=== PATIENT | female | born 1955 | race Caucasian/White ===

== ENCOUNTER → 2022-09-28 09:18 | Outpatient (BNVA) | payer OTHER, SELFPAY | PROVIDERS: Family Provider Family Medicine; Referring Provider Dermatology; Visit Provider Podiatrist Foot & Ankle Surgery | DX: M92.72 Juvenile osteochondrosis of metatarsus, left foot; M19.072 Primary osteoarthritis, left ankle and foot | CPT/HCPCS: 73630; 99204 ==

== ENCOUNTER 2022-11-12 08:27 | Outpatient (CLI) | payer OTHER, SELFPAY ==
--- NOTE | 2022-11-12 08:45 | MRR_ITS ---
PROCEDURE INFORMATION: Exam: MR Left Lower Extremity Other Than Joint Without Contrast; Foot Exam date and time: 11/12/2022 9:01 AM Age: 67 years old Clinical indication: Patient HX: Left foot pain since April 2022/no injury/pain is from the toes to the heel; Additional info: Suspected stress fracture left foot, forefoot protocol. Evaluate metatarsophalangeal joints, TECHNIQUE: Imaging protocol: Magnetic resonance imaging of the left lower extremity without contrast. Exam focused on the foot. COMPARISON: CR XR foot LT min 3V* [id number] 09/28/2022 9:23 AM FINDINGS: The examination is somewhat limited by motion degradation and the large field of view. There is generalized soft tissue swelling. No convincing organized collection or soft tissue mass is identified. There is evidence of mild chronic plantar fasciitis and insertional Achilles enthesopathy. No acute tendon or ligament injury is identified. There is extensive bone marrow edema, most notably in the talus, tarsal bones and metatarsals. There is relative sparing of the hallux and 2nd metatarsal heads and shafts. No convincing fracture line is appreciated. There is no dislocation. Mild degenerative changes are noted. There are no erosive or destructive changes. No lytic or blastic lesion is seen. There is a small amount of intra-articular fluid and synovitis diffusely. MR/MR foot LT wo con* [id number] IMPRESSION: 1. Limited examination. 2. No convincing MR evidence of acute fracture or dislocation. 3. Extensive nonspecific bone marrow edema, soft tissue swelling, intra-articular fluid and synovitis, as described above. Differential diagnosis includes but is not limited to altered biomechanics, mechanical stress, disuse, and osteopenia. Infection is considered unlikely given the clinical history. Clinical correlation and follow-up is urged. 4. Additional findings, as above.
== END 2022-11-12 08:28 | disposition home or self-care (01) ==
PROVIDERS: PCP Family Medicine; Visit Provider Podiatrist Foot & Ankle Surgery
DX: M84.375A Stress fracture, left foot, initial encounter for fracture (principal); R60.0 Localized edema; M79.89 Other specified soft tissue disorders; M65.872 Other synovitis and tenosynovitis, left ankle and foot
CPT/HCPCS: 73718

== ENCOUNTER → 2022-11-18 10:55 | Outpatient (BNVA) | payer OTHER, SELFPAY | PROVIDERS: PCP Family Medicine; Visit Provider Podiatrist Foot & Ankle Surgery | DX: M79.672 Pain in left foot (principal); M05.20 Rheumatoid vasculitis with rheumatoid arthritis of unspecified site | CPT/HCPCS: 36415; 85651; 86140; 86160; 86162; 86200; 86235; 86255; 86376; 86431 ==

== ENCOUNTER 2022-11-24 17:12 | Inpatient (IN) | payer MEDICARE, SELFPAY ==
[2022-11-24] VITALS (10 sets, daily range): BP systolic 103–128; BP diastolic 57–69; PULSE 92–103; RESP 16–19; TEMP 37.1; O2SAT 97–100; BMI 23.1
--- NOTE | 2022-11-24 18:01 | ECG_ITS ---
[facility] Test Date: 2022-11-24 Pat Name: Ab Bacon Department: Room: Gender: Female Warranty Coordinator: : 1955 Requested By: Yaron Caba Order Number: [id number] Jakub MD: Paddy Moore M.D. Measurements Intervals [place] Rate: 105 P: 2 ME: 113 QRS: 35 QRSD: 80 T: 61 QT: 324 QTc: 428 Interpretive Statements SINUS TACHYCARDIA WITH SHORT ME INTERVAL ABNORMAL RHYTHM ECG No previous ECG available for comparison Electronically Signed On 11-24-2022 20:53:49 CDT by Paddy Moore M.D. [email or web address] medical [email or web address], [id number]
--- NOTE | 2022-11-24 18:16 | W.ED.SYNCOPE ---
HPI - Syncope General: Chief Complaint: Syncope Stated Complaint: Syncope / Black Stools Time Seen by Provider: 11/24/22 18:01 Source: patient Mode of arrival: ambulatory Limitations: no limitations History of Present Illness: 67-year-old female states that this morning she felt very lightheaded and had a syncopal event. She states that she had large amount of black tarry stool at that time as well states she still having some black tarry stools but not as much she does feel lightheaded with standing but is feeling improved she denies any pain anywhere denies any chest pain denies headache no history of peptic ulcer bleeds in the past she is not on any blood thinners. Associated symptoms: Deny abdominal pain, chest pain, fever(s), headache(s) or nausea Review of Systems Const: Denies: fever(s), chills, body aches or change in appetite ENMT: Denies: throat pain or dental pain Card: Reports: syncope; Denies: chest pain Resp: Denies: dyspnea GI: Reports: melena; Denies: abdominal pain, nausea, vomiting or diarrhea : Denies: dysuria Musc: Denies: neck pain or back pain Skin/Breast: Denies: rash Neuro: Denies: headache(s) Physical Exam Const: COMMON NORMALS: patient oriented x3 HENMT: COMMON NORMALS: normocephalic and atraumatic HEAD & SCALP: normocephalic and atraumatic Eye: COMMON NORMALS: Equal, round and reactive pupils present and EOMs intact bilaterally PUPIL: Yes Equal, round and reactive pupils present Neck/C-Spine: COMMON NORMALS: full ROM and supple Chest: COMMONS NORMALS: normal inspection of the chest and normal palpation of entire chest wall Resp: COMMON NORMALS: normal respiratory effort, No retractions, No use of accessory muscles and clear to auscultation bilaterally AUSCULTATION: clear to auscultation bilaterally Cardio: COMMON NORMALS: regular rate, regular rhythm and No murmurs present (Cardio) RATE: regular rate RHYTHM: regular rhythm GI: COMMON NORMALS: Normal to inspection, nondistended, normoactive bowel sounds present, Soft to palpation, non-tender and no masses PALPATION: Yes Soft to palpation OTHER: black stool on exam hemocult positive Extremity: COMMON NORMALS: normal to inspection and full ROM Neuro: COMMON NORMALS: patient oriented x3, moves all extremities and no focal motor deficits Psych: COMMON NORMALS: mental status grossly normal, Normal thought process present and cooperative THOUGHT PROCESS: Normal thought process present Skin: COMMON NORMALS: no rashes or lesions noted and no wounds GENERAL SKIN EXAM: no rashes or lesions noted Course Vital Signs: Vital signs: Vital Signs Temperature 98.7 F 11/24/22 17:16 Pulse Rate 103 H 11/24/22 18:25 Respiratory Rate 18 11/24/22 17:16 Blood Pressure 107/68 11/24/22 18:25 Pulse Oximetry 98 11/24/22 18:25 Oxygen Delivery Me thod Room Air 11/24/22 18:25 MDM - Syncope Medical Decision Making Patient presents here with a likely upper GI bleed likely causing her syncope she is not anemic here her blood pressures here but normal did start her on Protonix spoke to the hospitalist along with surgeon and will admit at this time. Lab Data 11/24/22 18:24 11/24/22 18:24 Laboratory Results WBC 16.69 10^3/uL (3.29-11.43) H 11/24/22 18:24 RBC 2.87 10^6/uL (3.85-5.65) L 11/24/22 18:24 Hgb 10.00 g/dL (11.27-16.99) L 11/24/22 18:24 Hct 29.2 % (36-47) L 11/24/22 18:24 MCV 101.7 fl (85-98) H 11/24/22 18:24 MCH 34.8 pg (27-33) H 11/24/22 18:24 MCHC 34.2 g/dL (30-55) 11/24/22 18:24 RDW 13.1 % (12.1-15.1) 11/24/22 18:24 Plt Count 272 10^3/cmm (157-399) 11/24/22 18:24 MPV 9.4 fL (7.4-10.4) 11/24/22 18:24 Neut % (Auto) 77.8 % 11/24/22 18:24 Lymph % (Auto) 12.7 % 11/24/22 18:24 Bartholomew % (Auto) 7.7 % 11/24/22 18:24 Eos % (Auto) 0.3 % 11/24/22 18:24 Baso % (Auto) 0.2 % 11/24/22 18:24 Neut # (Auto) 12.97 10^3/uL (1.8-7.7) H 11/24/22 18:24 Lymph # (Auto) 2.1 10^3/uL (0.8-4.8) 11/24/22 18:24 Bartholomew # (Auto) 1.3 10^3/uL (0.2-0.9) H 11/24/22 18:24 Eos # (Auto) 0.1 10^3/uL (0.0-0.8) 11/24/22 18: Baso # (Auto) 0.0 10^3/uL (0.0-0.1) 11/24/22 18: Nucleated RBC % (auto) 0 % 11/24/22 18: Nucleated RBCs # 0.0 /100WBC 11/24/22 18: PT 13.00 SECONDS (12.1-14.9) 11/24/22 18:24 INR 0.96 (0.8-1.2) 11/24/22 18:24 Sodium 138 mmol/L (136-145) 11/24/22 18:24 Potassium 3.9 mmol/L (3.5-5.1) 11/24/22 18:24 Chloride 104 mmol/L (98-107) 11/24/22 18:24 Carbon Dioxide 26 mmol/L (22-29) 11/24/22 18:24 Anion Gap 11.9 (5-19) 11/24/22 18:24 BUN 45 mg/dL (8-23) H 11/24/22 18:24 Creatinine 0.8 mg/dL (0.5-0.9) 11/24/22 18:24 GFR Calculation 72.0 mL/min (90-130) L 11/24/22 18:24 Glucose 108 mg/dL (65-115) 11/24/22 18:24 Calculated Osmolality 298 mOsm/kg (285-295) H 11/24/22 18:24 Calcium 8.6 mg/dL (8.5-10.5) 11/24/22 18:24 Total Bilirubin 0.2 mg/dL (0.15-1.2) 11/24/22 18:24 AST 11 U/L (0-32) 11/24/22 18:24 ALT 18 U/L (0-33) 11/24/22 18:24 Alkaline Phosphatase 63 U/L (35-105) 11/24/22 18:24 Total Protein 6.0 g/dL (6.6-8.7) L 11/24/22 18:24 Albumin 3.7 g/dL (3.5-5.2) 11/24/22 18:24 Globulin 2.3 g/dL (1.3-4.6) 11/24/22 18:24 Blood Type A Positive 11/24/22 18:24 Rho(D) Type Positive 11/24/22 18:24 Antibody Screen Negative 11/24/22 18:24 No radiology studies performed this visit Critical Care Time Critical Care Time: Critical Care Time: Yes Total Critical Care Time: 40 Attestation: The high probability of a clinically significant, sudden or life threatening deterioration of the patient's gi system(s) required my full and direct attention, intervention and personal management. The critical care time is as shown. This time is in addition to time spent performing any reported procedures but includes the following: [x] Data and vital sign review and interpretation [x] Patient assessment, examination and intervention [x] Documentation [x] Medication orders and management Discharge Plan Discharge Patient Disposition: Admitted As Inpatient Clinical Impression: Acute upper GI bleed, Syncope Condition: Stable Prescriptions: No Action methylprednisolone [Medrol (Nuno)] 4 mg tablets,dose pack See Rx Instructions PO PER PKG DIR Qty: 21 0RF Rx Instructions: PO PER PKG DIR Referrals: bAel Sal DO [Primary Care Provider] - Coding Level of Care Code ED Brand Sales Manager for g Guzman
[2022-11-24 18:38] LABS: Basophils % 0.2 %; Eosinophils # 0.1 10^3/uL (0.0-0.8); Eosinophils % 0.3 %; Hematocrit 29.2 % (36-47); Lymphocytes # 2.1 10^3/uL (0.8-4.8); Lymphocytes % 12.7 %; Mean Corpuscular HGB Conc 34.2 g/dL (30-55); Mean Corpuscular Hemoglobin 34.8 pg (27-33); Mean Corpuscular Volume 101.7 fl (85-98); Mean Platelet Volume 9.4 fL (7.4-10.4); Monocytes # 1.3 10^3/uL (0.2-0.9); Monocytes % 7.7 %; Neutrophils # 12.97 10^3/uL (1.8-7.7); Neutrophils % 77.8 %; Nucleated Red Blood Cells % 0 %; Platelet Count 272 10^3/cmm (157-399); Red Blood Count 2.87 10^6/uL (3.85-5.65); Red Cell Distribution Width 13.1 % (12.1-15.1); White Blood Count 16.69 10^3/uL (3.29-11.43)
[2022-11-24] MEDS: pantoprazole 40 mg SDV 80 MG IVP (18:49)
[2022-11-24 18:50] LABS: INR 0.96 (0.8-1.2)
[2022-11-24] MEDS: pantoprazole 40 MG in sodium chloride 0.9% (plus) 100 ML 20 MG IV ×2 (18:50→23:25)
[2022-11-24 18:55] LABS: Alanine Aminotransferase 18 U/L (0-33); Albumin Level 3.7 g/dL (3.5-5.2); Alkaline Phosphatase 63 U/L (35-105); Anion Gap 11.9 (5-19); Aspartate Amino Transferase 11 U/L (0-32); Blood Urea Nitrogen 45 mg/dL (8-23); Calcium 8.6 mg/dL (8.5-10.5); Carbon Dioxide 26 mmol/L (22-29); Chloride 104 mmol/L (98-107); Globulin 2.3 g/dL (1.3-4.6); Glucose 108 mg/dL (65-115); Osmolality Calculated 298 mOsm/kg (285-295); Potassium 3.9 mmol/L (3.5-5.1); Sodium 138 mmol/L (136-145); Total Bilirubin 0.2 mg/dL (0.15-1.2)
--- NOTE | 2022-11-24 19:52 | CTR_ITS ---
PROCEDURE INFORMATION: Exam: CT Abdomen And Pelvis With Contrast Exam date and time: 11/24/2022 9:39 PM Age: 67 years old Clinical indication: Abdominal pain; Localized; Upper; Prior surgery; Surgery date: 6+ months; Surgery type: Ovary removed; Additional info: Epigastric pain TECHNIQUE: Imaging protocol: Computed tomography of the abdomen and pelvis with contrast. Radiation optimization: All CT scans at this facility use at least one of these dose optimization techniques: automated exposure control; mA and/or kV adjustment per patient size (includes targeted exams where dose is matched to clinical indication); or iterative reconstruction. Contrast material: OMNI 350; Contrast volume: 100 ml; Contrast route: INTRAVENOUS (IV); REPORTING DATA: Count of CT and Cardiac NM exams in prior 12 months: This patient has received 0 known CTs and 0 known cardiac nuclear medicine studies in the 12 months prior to the current study. COMPARISON: No relevant prior studies available. RADIATION DOSE METRICS: Total DLP (mGy-cm): 602.49 FINDINGS: Liver: Hepatic steatosis. Gallbladder and bile ducts: Normal. No calcified stones. No ductal dilation. Pancreas: Normal. No ductal dilation. Spleen: Normal. No splenomegaly. Adrenal glands: Normal. No mass. Kidneys and ureters: Normal. No hydronephrosis. Stomach and bowel: Mildly prominent fluid in the stomach may reflect a gastritis Appendix: No evidence of appendicitis. Intraperitoneal space: Unremarkable. No free air. No significant fluid collection. Vasculature: Unremarkable. No abdominal aortic aneurysm. Lymph nodes: Unremarkable. No enlarged lymph nodes. Urinary bladder: Unremarkable as visualized. Reproductive: Unremarkable as visualized. Bones/joints: Unremarkable. No acute fracture. Soft tissues: Unremarkable. CT/CT abdomen pelvis w con* [id number] IMPRESSION: 1. Mildly prominent fluid in the stomach may reflect a gastritis 2. Hepatic steatosis.
--- NOTE | 2022-11-24 20:15 | PM.HP ---
Providers/Chief Complaint Admitting Physician: Stewart Gutierrez MD Primary Care Provider: Abel Sal DO Chief Complaint: Syncope / Black Stools History of Present Illness Ab Bacon is a 67 year old female with no significant past medical history, she has been dealing with left foot pain, currently on a steroid taper, recently completed steroid taper, no history of ibuprofen use, no history of GI bleeds, no history of anemia, no history of blood transfusion had a colonoscopy about 10 years ago without any significant findings presents [facility] for 2 episodes of syncope and episodes of black tarry stool. Patient tells me that overnight at roughly 2 AM, she woke up to go the bathroom and she passed out fell to the floor, she was yelling out and her was able to help her off the floor, she went to the bathroom and she had an episode of black tarry stool. She woke up this morning, she did feel a bit lightheaded, dizzy no nausea, no vomiting, no bloody stools. This afternoon, she went to the bathroom again and she had an episode of black tarry stool and syncopized thereafter, she denies any preceding chest pain or palpitations no cardiovascular history, no shortness of breath, no calf pain, no calf swelling, Review of Systems Const: Denies: fever(s) Card: Reports: syncope; Denies: chest pain Resp: Denies: dyspnea GI: Reports: abdominal pain and melena; Denies: nausea, hematemesis, coffee ground emesis or hematochezia : Denies: flank pain or difficulty voiding Musc: Denies: neck pain or back pain Skin/Breast: Denies: rash Neuro: Denies: headache(s) or numbness in extremities [place]/Lymph: Denies: easy bleeding Medications/Allergies Home Medications Medication Instructions Recorded Confirmed Last Taken Type methylprednisolone 4 mg tablets in See Rx Instructions PO PER PKG DIR 11/18/22 11/18/22 Unknown Rx a dose pack (Medrol (Nuno)) #21 ea Allergies Allergy/AdvReac Type Severity Reaction Status Date / Time No Known Allergies Allergy Verified 11/24/22 17:21 PFSH Acute PFSH: Medical History (Updated 11/24/22 @ 20:22 by Stewart Gutierrez MD) No pertinent past medical history Surgical History (Updated 11/24/22 @ 20:22 by Stewart Gutierrez MD) Hx of ovarian cystectomy Family History (Updated 11/24/22 @ 20:23 by Stewart Gutierrez MD) Father Cancer Social History (Updated 11/24/22 @ 20:23 by Stewart Gutierrez MD) Smoking and tobacco status: current every day smoker Alcohol intake: current Alcohol intake frequency: 0-2 Drinks per Day Substance/Drug Use: never Vitals/I&O/Wt Last Vital Signs Temp 98.7 F 11/24/22 17:16 Pulse 101 H 11/24/22 20:01 Resp 18 11/24/22 20:01 BP 115/67 11/24/22 20:01 Pulse Ox 99 11/24/22 20:01 O2 Del Method Room Air 11/24/22 20:01 Weight last 48 hrs Weight 61.235 kg Physical Exam Const: COMMON NORMALS: no acute distress and patient oriented x3 GENERAL APPEARANCE: cooperative, well kempt and well developed HENMT: COMMON NORMALS: normocephalic and Normal external nose present HEAD & SCALP: normocephalic FACE & SINUS: normal facial exam NOSE: Normal external nose present Eye: COMMON NORMALS: Equal, round and reactive pupils present PUPIL: Yes Equal, round and reactive pupils present Neck/C-Spine: COMMON NORMALS: full ROM, no lymphadenopathy, no JVD, Thyroid normal and No carotid bruits THYROID: Thyroid normal Lymph: LYMPHATIC: no lymphadenopathy noted Chest: COMMONS NORMALS: normal inspection of the chest Resp: COMMON NORMALS: normal respiratory effort, No retractions, No use of accessory muscles and clear to auscultation bilaterally AUSCULTATION: clear to auscultation bilaterally Cardio: COMMON NORMALS: regular rate, regular rhythm, S1 normal heart sound present, S2 normal heart sound present, No murmurs present (Cardio) and Peripheral pulses 2+ throughout RATE: regular rate RHYTHM: regular rhythm HEART SOUNDS: S1 normal heart sound present and S2 normal heart sound present PERIPHERAL PULSES: Peripheral pulses 2+ throughout GI: COMMON NORMALS: Normal to inspection, nondistended, normoactive bowel sounds present and Soft to palpation OTHER: palpable epigatric pain, density seen : BLADDER/KIDNEY EXAM: Yes no CVA tenderness Back/Pelvis: COMMON NORMALS: no CVA tenderness Extremity: COMMON NORMALS: normal to inspection, full ROM, capillary refill normal, no calf tenderness and no pedal edema Neuro: COMMON NORMALS: patient oriented x3, CN's II-XII intact bilaterally, moves all extremities and no focal motor deficits Psych: COMMON NORMALS: mental status grossly normal, Normal thought process present, cooperative and speech normal APPEARANCE: Yes well kempt SPEECH: Yes normal speech THOUGHT PROCESS: Normal thought process present Skin: COMMON NORMALS: turgor normal and no jaundice GENERAL SKIN EXAM: turgor normal Data 11/24/22 18:24 11/24/22 18:24 A&P Assessment and plan (1) Acute upper GI bleed: (2) Syncope: (3) Acute anemia: Plan Acute upper GI bleed, with syncope and anemia -We will monitor in ICU -Monitor hemodynamics closely -Continue Protonix drip -Continue Carafate -Monitor hemoglobins every 4 hours -IV fluids -General surgery consulted, n.p.o. midnight, for EGD tomorrow morning given epigastric discomfort, palpable density-We will do CT scan abdomen pelvis Does have leukocytosis, obtain UA, chest x-ray Due to syncopal episode will order troponin series, EKGs, TSH, cortisol, lactic acid Keep on strict bedrest Full code SCDs for DVT prophylaxis Attestations Medical Necessity Statement*: Patient requires hospitalization, inpatient, greater than 2 midnights, due to syncope and GI bleed Diagnoses Acute upper GI bleed K92.2 Syncope R55 Acute anemia D64.9
[2022-11-24 20:23] LABS: Hematocrit 29.2 % (36-47)
--- NOTE | 2022-11-24 20:25 | ECG_ITS ---
[facility] Test Date: 2022-11-24 Pat Name: Ab Bacon Department: Room: [facility] Gender: Female Cna Gna: : 1955 Requested By: Stewart Gutierrez Order Number: [id number] Jakub MD: Daren Montero M.D. Measurements Intervals [place] Rate: 93 P: -2 ME: 109 QRS: 36 QRSD: 92 T: 61 QT: 334 QTc: 417 Interpretive Statements SINUS RHYTHM WITH SHORT ME INTERVAL Compared to ECG 11/24/2022 18:07:30 Sinus tachycardia no longer present Electronically Signed On 11-25-2022 9:20:51 CDT by Daren Montero M.D. [id number]
--- NOTE | 2022-11-24 20:38 | CTR_ITS ---
PROCEDURE INFORMATION: Exam: CT Head Without Contrast Exam date and time: 11/24/2022 9:32 PM Age: 67 years old Clinical indication: Syncope and collapse TECHNIQUE: Imaging protocol: Computed tomography of the head without contrast. Radiation optimization: All CT scans at this facility use at least one of these dose optimization techniques: automated exposure control; mA and/or kV adjustment per patient size (includes targeted exams where dose is matched to clinical indication); or iterative reconstruction. REPORTING DATA: Count of CT and Cardiac NM exams in prior 12 months: This patient has received 0 known CTs and 0 known cardiac nuclear medicine studies in the 12 months prior to the current study. COMPARISON: No relevant prior studies available. RADIATION DOSE METRICS: Total DLP (mGy-cm): 1006.45 FINDINGS: Brain: Normal. No hemorrhage. Unremarkable white matter. No mass effect. Cerebral ventricles: No ventriculomegaly. Paranasal sinuses: Visualized sinuses are unremarkable. No fluid levels. Mastoid air cells: Visualized mastoid air cells are well aerated. Bones/joints: Unremarkable. No acute fracture. Soft tissues: Unremarkable. CT/CT head wo con* [id number] IMPRESSION: No acute intracranial abnormality.
--- NOTE | 2022-11-24 20:38 | XR_ITS ---
WS: [id number] PORTABLE CHEST HISTORY: sob COMPARISON: None available. Lungs are clear and well expanded. No pleural effusion or pneumothorax. Cardiac size: Normal. Mediastinum/Aorta: Normal mediastinum. No osseous abnormality seen. IMPRESSION: Unremarkable portable chest.
[2022-11-24 20:39] LABS: Lactic Sepsis W/Reflex 1.7 mmol/L (0.5-2.2)
[2022-11-24 20:56] LABS: Troponin(5th) Baseline 9 ng/L (0-10)
[2022-11-24] MEDS: sodium chloride 0.9% 1,000 ML 125 ML IV (21:02)
[2022-11-24] MEDS: sucralfate 1 gm/10 mL Oral Liq UDC PO (21:03)
[2022-11-24 21:07] LABS: Cortisol Random 5.48 ug/dL (2.47-19.5); Thyroid Stimulating Hormone 1.51 uIU/mL (0.27-4.20)
[2022-11-24 21:15] LABS: Troponin 5 2HR 9.26 ng/L (0-10); Troponin 5 2HR Delta 0.26 ABS# (0-10)
[2022-11-25] VITALS (51 sets, daily range): BP systolic 84–120; BP diastolic 37–69; PULSE 72–98; RESP 12–27; TEMP 36.7–36.8; O2SAT 84–100
[2022-11-25] MEDS: sucralfate 1 gm/10 mL Oral Liq UDC PO ×4 (01:44→20:18)
[2022-11-25] MEDS: pantoprazole 40 mg SDV (01:55)
--- NOTE | 2022-11-25 02:34 | ECG_ITS ---
[facility] Test Date: 2022-11-25 Pat Name: Ab Bacon Department: Room: [facility] Gender: Female Chart Picker: : 1955 Requested By: Stewart Gutierrez Order Number: [id number] Jakub MD: Daren Montero M.D. Measurements Intervals [place] Rate: 80 P: 16 MN: 107 QRS: 49 QRSD: 89 T: 62 QT: 377 QTc: 437 Interpretive Statements SINUS RHYTHM WITH SHORT [place] INTERVAL WITH OCCASIONAL VENTRICULAR PREMATURE COMPLEXES Compared to ECG 11/24/2022 21:20:19 Ventricular premature complex(es) now present Electronically Signed On 11-25-2022 9:20:56 CDT by Daren Montero M.D. [id number]
[2022-11-25 03:03] LABS: Basophils % 0.4 %; Eosinophils # 0.1 10^3/uL (0.0-0.8); Eosinophils % 1.3 %; Hematocrit 23.9 % (36-47); Lymphocytes # 2.7 10^3/uL (0.8-4.8); Lymphocytes % 24.3 %; Mean Corpuscular HGB Conc 33.9 g/dL (30-55); Mean Corpuscular Hemoglobin 35.1 pg (27-33); Mean Corpuscular Volume 103.5 fl (85-98); Mean Platelet Volume 9.6 fL (7.4-10.4); Monocytes # 0.6 10^3/uL (0.2-0.9); Monocytes % 5.4 %; Neutrophils # 7.45 10^3/uL (1.8-7.7); Neutrophils % 67.2 %; Nucleated Red Blood Cells % 0 %; Platelet Count 213 10^3/cmm (157-399); Red Blood Count 2.31 10^6/uL (3.85-5.65); Red Cell Distribution Width 13.2 % (12.1-15.1); White Blood Count 11.07 10^3/uL (3.29-11.43)
[2022-11-25 03:29] LABS: Alanine Aminotransferase 13 U/L (0-33); Albumin Level 3.1 g/dL (3.5-5.2); Alkaline Phosphatase 52 U/L (35-105); Anion Gap 11.7 (5-19); Aspartate Amino Transferase 10 U/L (0-32); Blood Urea Nitrogen 33 mg/dL (8-23); Calcium 7.8 mg/dL (8.5-10.5); Carbon Dioxide 23 mmol/L (22-29); Chloride 108 mmol/L (98-107); Globulin 1.9 g/dL (1.3-4.6); Glucose 94 mg/dL (65-115); Osmolality Calculated 295 mOsm/kg (285-295); Phosphorus 2.9 mg/dL (2.5-4.5); Potassium 3.7 mmol/L (3.5-5.1); Sodium 139 mmol/L (136-145); Total Bilirubin 0.2 mg/dL (0.15-1.2)
[2022-11-25 03:31] LABS: Troponin 5 6HR 8.35 ng/L (0-10); Troponin 5 6HR Delta -0.65 ng/L (0-12)
[2022-11-25 03:36] LABS: Add Urine Culture? No; Add Urine Microscopic? YES; Bacteria Urine TRACE /hpf; Bilirubin Urine Neg (Negative); Blood Urine Trace (Negative); Glucose Urine UA Norm (Normal); Ketones Urine Negative (Negative); Leukocyte Esterase Urine Negative (Negative); Nitrate Urine Negative (Negative); Protein Urine Trace (Negative); RBC Urine 0-4 /hpf (0-2); Urine Appearance Clear (CLEAR); Urine Color Yellow (Yellow); Urobilinogen Urine Neg (Negative); pH Urine 5 (5-7)
[2022-11-25] MEDS: pantoprazole 40 MG in sodium chloride 0.9% (plus) 100 ML 20 MG IV ×2 (05:01→08:55)
[2022-11-25] MEDS: sodium chloride 0.9% 1,000 ML 125 ML IV ×3 (05:29→18:40)
[2022-11-25 06:59] LABS: Hematocrit 23.8 % (36-47)
--- NOTE | 2022-11-25 10:05 | PM.PN ---
Subjective Subjective: Significant drop in hemoglobin noted I would consider active bleeding Blood pressure 100/52 mmHg I will give her 2 units PRBC Going for EGD today Patient is n.p.o. Vitals/I&O/Wt Last Vital Signs Temp 98.7 F 11/24/22 17:16 Pulse 81 11/25/22 09:30 Resp 14 11/25/22 09:30 BP 100/52 11/25/22 09:30 Pulse Ox 97 11/25/22 09:30 O2 Del Method Room Air 11/24/22 20:39 11/24/22 11/25/22 11/25/22 22:59 06:59 14:59 Intake Total 180 / 180 1431.667 / 1611.667 78 / 78 Output Total 300 / 300 Balance 180 / 180 1131.667 / 1311.667 78 / 78 Weight last 48 hrs Weight 61.235 kg Physical Exam Narrative: Awake and alert GCS 15 Nonfocal neuro exam Skin is pale Pale complexion Family at the bedside Currently on room air Blood pressure 100/52 mm work S1, S2 No tachycardia Data 11/25/22 06:51 11/25/22 02:57 A&P Assessment and plan (1) Acute anemia: (2) Acute upper GI bleed: (3) Syncope: (4) Freiberg's disease: Plan Syncope Upper GI bleed Significant drop in hemoglobin We will give 2 unit PRBC We will lower the rate of IV fluids Patient is still hypotensive however symptoms resolved Currently on room air Waiting for EGD N.p.o. 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
[2022-11-25] MEDS: pantoprazole 40 mg SDV IVP ×2 (10:57→20:17)
--- NOTE | 2022-11-25 12:52 | PM.CONSULT ---
Providers/Reason For Consult Consulting Physician/Specialty*: Dr. Joni Chávez DO/General surgery Reason for Consult*: GI bleed Attending Physician: Rupal Rubi MD Primary Care Provider: Abel Sal DO History of Present Illness History of Present Illness Ab Bacon is a 67 year old female who presents to the hospital with weakness and fainting. She reports that for the last couple days she has had black stools. She also reports that she has had some epigastric pain with heartburn over the last few days. Eating to make the pain worse. Nothing makes pain better. Denies any nausea or vomiting. Review of Systems General: Reports: 10 or more systems reviewed and unremarkable except in HPI and below Medications/Allergies Home Medications Medication Instructions Recorded Confirmed Last Taken Type No Known Home Medications 11/25/22 11/25/22 Unknown History Allergies Allergy/AdvReac Type Severity Reaction Status Date / Time No Known Allergies Allergy Verified 11/24/22 17:21 Current Medications Generic Name Dose Route Start Last Admin Trade Name Freq PRN Reason Stop Dose Admin Sodium Chloride 1,000 mls @ 75 mls/hr 11/24/22 20:00 11/25/22 05:29 Sodium Chloride 0.9% IV 125 mls/hr .[id number] MG Administration Pantoprazole Sodium 40 mg 11/25/22 10:15 11/25/22 10:57 Pantoprazole 40 Mg Sdv IVP 40 mg Q12H MG Administration Sucralfate 1 gm 11/24/22 20:00 11/25/22 08:55 Sucralfate 1 Gm/10 Ml Oral Liq Udc PO 1 gm Q6H MG Administration PFSH Acute PFSH: Medical History No pertinent past medical history Surgical History Hx of ovarian cystectomy Family History Father Cancer Social History Smoking and tobacco status: current every day smoker Alcohol intake: current Alcohol intake frequency: 0-2 Drinks per Day Substance/Drug Use: never Vitals/I&O/Wt Last Vital Signs Temp 98.7 F 11/24/22 17:16 Pulse 81 11/25/22 12:49 Resp 19 H 11/25/22 12:49 BP 107/57 11/25/22 12:49 Pulse Ox 84 L 11/25/22 12:49 O2 Del Method Room Air 11/24/22 20:39 11/24/22 11/25/22 11/25/22 22:59 06:59 14:59 Intake Total 180 / 180 1431.667 / 1611.667 78 / 78 Output Total 300 / 300 Balance 180 / 180 1131.667 / 1311.667 / 78 Weight last 48 hrs Weight 135 lb Physical Exam Narrative: General : Patient is well developed , no acute distress, oriented x3 Head : Normal cephalic, a-traumatic. Ears : Pinnae and external canal are normal. Hearing is normal. Eyes : PERRLA, Sclera and injection are normal. No conjunctival discharge. Nose : Mucous membranes are without erythema. Throat : buccal mucosa is normal, gums are without significant recession or hypertrophy. Lungs : Equal chest rise bilaterally, no use of accessory muscles, trachea is midline. Cor : Rate and rhythm are normal. Abdomen : Soft, ND, NT, no g/r/m Extremities : No edema, no cyanosis or clubbing, dorsalis pedis pulses are present bilaterally, non-tender to palpation of calves. Upper extremities are normal bilaterally. Back : non-tender to palpation, no CVA tenderness. Neuro : CN II - XII intact, Upper and lower extremities have equal and full strength Data 11/25/22 10:50 11/25/22 02:57 A&P Assessment and plan (1) Acute upper GI bleed: Plan EGD The risks and benefits of the procedure, including bleeding, infection, intestinal perforation requiring surgery, missed lesion were explained to the patient. The patient is understanding of the risks and wishes to proceed. Coding Level of Care Code 66088 Diagnoses Acute upper GI bleed K92.2
--- NOTE | 2022-11-25 13:20 | PC.NURSE ---
Patient off unit with GI lab staff
--- NOTE | 2022-11-25 13:22 | ANES.PREANE2 ---
Pre-Anesthetic Assessment Height/Weight: Height 1.63 m Weight 61.235 kg Temp Pulse Resp BP Pulse Ox O2 Del Method 98.7 F 81 19 H 107/57 84 L Room Air 11/24/22 17:16 11/25/22 12:49 11/25/22 12:49 11/25/22 12:49 11/25/22 12:49 11/24/22 20:39 Preop Diagnosis: anemia Operation Date: 11/25/22 14:00 Proposed Procedures p EGD(Not Applicable) - Joni Chávez DO Was Beta Alessandro taken within 24 hours: N/A Was Clonidine taken within 24 hours: N/A Social Tobacco and No alcohol 1 pack per day pack(s) per day Exam alert, oriented x 3, clear to auscultation bilaterally and regular rate & rhythm Airway Submandibular: within normal limits Cervical ROM: within normal limits Mallampati: Class I Pulmonary None reported CV/HEM Anemia denies CP, SOB. METS > 4 None reported Hepatic None reported GI None reported Metabolic None reported Musc/skel None reported Neuropsych None reported Anesthetic Plan ASA status: 2 Anesthesia: Anesthesia Evaluation and MAC Risk of > 500 ml blood loss (7ml/kg in children): Yes, adequate IV access and fluids planned Medications/Allergies Home Medications Medication Instructions Recorded Confirmed Last Taken Type No Known Home Medications 11/25/22 11/25/22 Unknown History Allergies Allergy/AdvReac Type Severity Reaction Status Date / Time No Known Allergies Allergy Verified 11/24/22 17:21 Current Medications Generic Name Dose Route Start Last Admin Trade Name Freq PRN Reason Stop Dose Admin Sodium Chloride 1,000 mls @ 75 mls/hr 11/24/22 20:00 11/25/22 05:29 Sodium Chloride 0.9% IV 125 mls/hr .[id number] MG Administration Pantoprazole Sodium 40 mg 11/25/22 10:15 11/25/22 10:57 Pantoprazole 40 Mg Sdv IVP 40 mg Q12H MG Administration Sucralfate 1 gm 11/24/22 20:00 11/25/22 08:55 Sucralfate 1 Gm/10 Ml Oral Liq Udc PO 1 gm Q6H MG Administration PFSH Anesthesia Medical History No pertinent past medical history Surgical History Hx of ovarian cystectomy Family History Father Cancer Social History Smoking and tobacco status: current every day smoker Alcohol intake: current Alcohol intake frequency: 0-2 Drinks per Day Substance/Drug Use: never Data Anesthesia 11/25/22 10:50 11/25/22 02:57 Short CBC 11/24/22 11/24/22 11/25/22 Range/Units 18:24 20:15 02:57 WBC 16.69 H 11.07 (3.29-11.43) 10^3/uL Hgb 10.00 L 9.90 L 8.10 L (11.27-16.99) g/dL Hct 29.2 L 29.2 L 23.9 L (36-47) % MCV 101.7 H 103.5 H (85-98) fl Plt Count 272 213 (157-399) 10^3/cmm Neut % (Auto) 77.8 67.2 % Neut # (Auto) 12.97 H 7.45 (1.8-7.7) 10^3/uL 11/25/22 11/25/22 Range/Units 06:51 10:50 WBC (3.29-11.43) 10^3/uL Hgb 7.80 L 7.50 L (11.27-16.99) g/dL Hct 23.8 L 23.0 L (36-47) % MCV (85-98) fl Plt Count (157-399) 10^3/cmm Neut % (Auto) % Neut # (Auto) (1.8-7.7) 10^3/uL BMP 11/24/22 11/25/22 18:24 02:57 Sodium 138 139 Potassium 3.9 3.7 Chloride 104 108 H Carbon Dioxide 26 23 BUN 45 H 33 H Creatinine 0.8 0.8 Glucose 108 94 Calcium 8.6 7.8 L Cardiac Enzymes 11/24/22 11/24/22 11/25/22 Range/Units 18:24 20:35 02:57 Troponin T Baseline 9 (0-10) ng/L Troponin T 120 Minute 9.26 (0-10) ng/L Delta Troponin T 0.26 (0-10) ABS# Troponin T Hi Sens 6Hr 8.35 (0-10) ng/L Troponin T Hi Sens 6Hr Delta -0.65 L (0-12) ng/L Liver Function 11/24/22 11/25/22 Range/Units 18:24 02:57 Total Bilirubin 0.2 0.2 (0.15-1.2) mg/dL AST 11 10 (0-32) U/L ALT 18 13 (0-33) U/L Alkaline Phosphatase 63 52 (35-105) U/L Albumin 3.7 3.1 L (3.5-5.2) g/dL Urine 11/25/22 Range/Units 01:42 Urine Color Yellow (Yellow) Urine Appearance Clear (CLEAR) Urine pH 5 (5-7) Ur Specific [place] 1.010 (1.005-1.030) Urine Protein Trace (Negative) Urine Glucose (UA) Norm (Normal) Urine Ketones Negative (Negative) Urine Nitrate Negative (Negative) Urine Bilirubin Neg (Negative) Ur Leukocyte Esterase Negative (Negative) Urine RBC 0-4 H (0-2) /hpf Urine WBC None (0-5) /hpf Blood Bank 11/24/22 18:24 Blood Type A Positive Rho(D) Type Positive Antibody Screen Negative Coags 11/24/22 18:24 PT 13.00 INR 0.96 Cardiac Studies: No Data to Display
--- NOTE | 2022-11-25 14:04 | PC.NURSE ---
BLOOD TRANSFUSING UPON ARRIVAL TO GI LAB, MONITORED AND INFUSED BY AUSTIN MANZO DURING PROCEDURE.
--- NOTE | 2022-11-25 14:31 | PC.NURSE ---
Arrived from GI lab, AO x4 on RA
[2022-11-25] MEDS: cetylpyridinium Lozenge 1 EACH MUCOUS MEM (14:44)
[2022-11-25 15:47] LABS: Basophils # 0.1 10^3/uL (0.0-0.1); Basophils % 0.6 %; Eosinophils # 0.2 10^3/uL (0.0-0.8); Eosinophils % 1.9 %; Hematocrit 28.2 % (36-47); Lymphocytes # 2.3 10^3/uL (0.8-4.8); Lymphocytes % 29.2 %; Mean Corpuscular HGB Conc 33.7 g/dL (30-55); Mean Corpuscular Hemoglobin 34.1 pg (27-33); Mean Corpuscular Volume 101.1 fl (85-98); Mean Platelet Volume 9.6 fL (7.4-10.4); Monocytes # 0.5 10^3/uL (0.2-0.9); Neutrophils # 4.76 10^3/uL (1.8-7.7); Neutrophils % 61.1 %; Nucleated Red Blood Cells % 0 %; Platelet Count 183 10^3/cmm (157-399); Red Blood Count 2.79 10^6/uL (3.85-5.65); Red Cell Distribution Width 16.7 % (12.1-15.1)
--- NOTE | 2022-11-25 19:21 | PC.NURSE ---
1910- dr fernández notified of current hgb and second prbc ordered, asked to hold 2nd prbc for now and will recheck hgb and hct at 2100.
[2022-11-25] MEDS: acetaminophen 325 mg Tablet 650 MG PO (20:31)
[2022-11-25 21:39] LABS: White Blood Count 7.28 10^3/uL (3.29-11.43)
[2022-11-25 21:40] LABS: Basophils % 0.5 %; Eosinophils # 0.2 10^3/uL (0.0-0.8); Eosinophils % 2.1 %; Hematocrit 25.8 % (36-47); Lymphocytes # 2.1 10^3/uL (0.8-4.8); Lymphocytes % 28.4 %; Mean Corpuscular HGB Conc 33.7 g/dL (30-55); Mean Corpuscular Hemoglobin 33.2 pg (27-33); Mean Corpuscular Volume 98.5 fl (85-98); Mean Platelet Volume 9.7 fL (7.4-10.4); Monocytes # 0.5 10^3/uL (0.2-0.9); Monocytes % 6.6 %; Neutrophils # 4.44 10^3/uL (1.8-7.7); Platelet Count 189 10^3/cmm (157-399); Red Blood Count 2.62 10^6/uL (3.85-5.65); Red Cell Distribution Width 17.5 % (12.1-15.1)
[2022-11-25 21:41] LABS: Nucleated Red Blood Cells % 0 %
[2022-11-26] VITALS (13 sets, daily range): BP systolic 82–118; BP diastolic 43–61; PULSE 70–74; RESP 13–25; TEMP 36.8; O2SAT 95–97
[2022-11-26] MEDS: sucralfate 1 gm/10 mL Oral Liq UDC PO ×2 (02:10→08:01)
[2022-11-26 04:54] LABS: Basophils % 0.7 %; Eosinophils # 0.2 10^3/uL (0.0-0.8); Eosinophils % 2.5 %; Lymphocytes % 34.3 %; Mean Corpuscular HGB Conc 33.7 g/dL (30-55); Mean Corpuscular Hemoglobin 33.8 pg (27-33); Mean Corpuscular Volume 100.4 fl (85-98); Mean Platelet Volume 9.3 fL (7.4-10.4); Monocytes # 0.4 10^3/uL (0.2-0.9); Monocytes % 6.7 %; Neutrophils # 3.26 10^3/uL (1.8-7.7); Neutrophils % 54.8 %; Nucleated Red Blood Cells % 0 %; Platelet Count 185 10^3/cmm (157-399); Red Blood Count 2.69 10^6/uL (3.85-5.65); Red Cell Distribution Width 17.2 % (12.1-15.1); White Blood Count 5.95 10^3/uL (3.29-11.43)
[2022-11-26 05:16] LABS: Alanine Aminotransferase 14 U/L (0-33); Alkaline Phosphatase 50 U/L (35-105); Aspartate Amino Transferase 13 U/L (0-32); Blood Urea Nitrogen 15 mg/dL (8-23); Calcium 7.8 mg/dL (8.5-10.5); Carbon Dioxide 21 mmol/L (22-29); Chloride 113 mmol/L (98-107); Globulin 1.7 g/dL (1.3-4.6); Glucose 91 mg/dL (65-115); Osmolality Calculated 294 mOsm/kg (285-295); Sodium 142 mmol/L (136-145); Total Bilirubin 0.3 mg/dL (0.15-1.2); Total Protein 4.7 g/dL (6.6-8.7)
--- NOTE | 2022-11-26 09:11 | PM.DCS ---
Discharge Providers Date of Admission: 11/24/22 19:43 Date of Discharge: November 26, 2022 Attending Provider at Admission: Stewart Gutierrez MD Attending Provider at Discharge: Rupal Rubi MD Primary Care Provider: Abel Sal DO Diagnoses at Discharge Discharge Diagnosis (1) Acute upper GI bleed: Status: Acute Reason for Visit Reason for Visit: Syncope / Black Stools Hospital Course Hospital Course 67 female who present to the hospital with melanotic stools, generalized weakness and fatigue. She has not taken NSAIDs chronically, no history of gastric ulcers, no recent stressors in life, does not smoke or drink alcohol on daily basis, was diagnosed with acute GI blood loss anemia she was given 2 units PRBC her hemoglobin improved up to 9, Dr. Chávez was consulted for an EGD which showed gastric ulcer, H. pylori needs to be ruled out, biopsies pending, I have asked patient to touch base with her PCP within next 7 to 10 days I will put her on Protonix 6 weeks regimen for now I have counseled patient not to take ibuprofen, aspirin, avoid smoking, alcohol. Physical Exam Narrative: Awake and alert GCS 15 Hemodynamically stable GCS 15 S1, S2 Pleasant and cooperative Discharge Data Studies Completed and Pending Completed Studies During Hospitalization Category Date Time Status CT abdomen pelvis w con* [id number] Stat Cat Scan 11/24/22 19:[address] head wo con* [id number] Routine Cat Scan 11/24/22 20:38 Completed XR chest 1V portable [id number] Routine Exams 11/24/22 20:38 Completed Pending at discharge Category Date Time Status Complete Blood Count w/Auto AM LABS Lab 11/27/22 04:00 Ordered Comprehensive Metabolic Panel AM LABS Lab 11/27/22 04:00 Ordered Magnesium AM LABS Lab 11/27/22 04:00 Ordered PRBC [Leukocyte Reduced RBC] Routine Lab 11/25/22 10:05 Results Phosphorus AM LABS Lab 11/27/22 04:00 Ordered Type and Screen Routine Lab 11/24/22 18:24 Results Pathology: Surgical [PTH] Routine Pth 11/25/22 14:02 Received Radiology Impressions Abdomen/Pelvis CT 11/24/22 19:52 IMPRESSION: 1. Mildly prominent fluid in the stomach may reflect a gastritis 2. Hepatic steatosis. Head CT 11/24/22 20:38 IMPRESSION: No acute intracranial abnormality. Laboratory Results WBC 5.95 10^3/uL (3.29-11.43) 11/26/22 04:39 RBC 2.69 10^6/uL (3.85-5.65) L 11/26/22 04:39 Hgb 9.10 g/dL (11.27-16.99) L 11/26/22 04:39 Hct 27.0 % (36-47) L 11/26/22 04:39 MCV 100.4 fl (85-98) H 11/26/22 04:39 MCH 33.8 pg (27-33) H 11/26/22 04:39 MCHC 33.7 g/dL (30-55) 11/26/22 04:39 RDW 17.2 % (12.1-15.1) H 11/26/22 04:39 Plt Count 185 10^3/cmm (157-399) 11/26/22 04:39 MPV 9.3 fL (7.4-10.4) 11/26/22 04:39 Neut % (Auto) 54.8 % 11/26/22 04:39 Lymph % (Auto) 34.3 % 11/26/22 04:39 [place] % (Auto) 6.7 % 11/26/22 04:39 Eos % (Auto) 2.5 % 11/26/22 04:39 Baso % (Auto) 0.7 % 11/26/22 04:39 Neut # (Auto) 3.26 10^3/uL (1.8-7.7) 11/26/22 04:39 Lymph # (Auto) 2.0 10^3/uL (0.8-4.8) 11/26/22 04:39 [place] # (Auto) 0.4 10^3/uL (0.2-0.9) 11/26/22 04:39 Eos # (Auto) 0.2 10^3/uL (0.0-0.8) 11/26/22 04:39 Baso # (Auto) 0.0 10^3/uL (0.0-0.1) 11/26/22 04:39 Nucleated RBC % (auto) 0 % 11/26/22 04:39 Nucleated RBCs # 0.0 /100WBC 11/26/22 04:39 PT 13.00 SECONDS (12.1-14.9) 11/24/22 18:24 INR 0.96 (0.8-1.2) 11/24/22 18:24 Sodium 142 mmol/L (136-145) 11/26/22 04:39 Potassium 4.0 mmol/L (3.5-5.1) 11/26/22 04:39 Chloride 113 mmol/L (98-107) H 11/26/22 04:39 Carbon Dioxide 21 mmol/L (22-29) L 11/26/22 04:39 Anion Gap 12.0 (5-19) 11/26/22 04:39 BUN 15 mg/dL (8-23) 11/26/22 04:39 Creatinine 0.8 mg/dL (0.5-0.9) 11/26/22 04:39 GFR Calculation 72.0 mL/min (90-130) L 11/26/22 04:39 Glucose 91 mg/dL (65-115) 11/26/22 04:39 Calculated Osmolality 294 mOsm/kg (285-295) 11/26/22 04:39 Lactic Acid 1.7 mmol/L (0.5-2.2) 11/24/22 20:15 Calcium 7.8 mg/dL (8.5-10.5) L 11/26/22 04:39 Phosphorus 3.0 mg/dL (2.5-4.5) 11/26/22 04:39 Magnesium 2.0 mg/dL (1.7-2.3) 11/26/22 04:39 Total Bilirubin 0.3 mg/dL (0.15-1.2) 11/26/22 04:39 AST 13 U/L (0-32) 11/26/22 04:39 ALT 14 U/L (0-33) 11/26/22 04:39 Alkaline Phosphatase 50 U/L (35-105) 11/26/22 04:39 Troponin T Baseline 9 ng/L (0-10) 11/24/22 18:24 Troponin T 120 Minute 9.26 ng/L (0-10) 11/24/22 20:35 Delta Troponin T 0.26 ABS# (0-10) 11/24/22 20:35 Troponin T Hi Sens 6Hr 8.35 ng/L (0-10) 11/25/22 02:57 Troponin T Hi Sens 6Hr Delta -0.65 ng/L (0-12) L 11/25/22 02:57 Total Protein 4.7 g/dL (6.6-8.7) L 11/26/22 04:39 Albumin 3.0 g/dL (3.5-5.2) L 11/26/22 04:39 Globulin 1.7 g/dL (1.3-4.6) 11/26/22 04:39 TSH 1.51 uIU/mL (0.27-4.20) 11/24/22 20:18 Random Cortisol 5.48 ug/dL (2.47-19.5) 11/24/22 20:18 Urine Color Yellow (Yellow) 11/25/22 01:42 Urine Appearance Clear (CLEAR) 11/25/22 01:42 Urine pH 5 (5-7) 11/25/22 01:42 Ur Specific [place] 1.010 (1.005-1.030) 11/25/22 01:42 Urine Protein Trace (Negative) 11/25/22 01:42 Urine Glucose (UA) Norm (Normal) 11/25/22 01:42 Urine Ketones Negative (Negative) 11/25/22 01:42 Urine Blood Trace (Negative) H 11/25/22 01:42 Urine Nitrate Negative (Negative) 11/25/22 01:42 Urine Bilirubin Neg (Negative) 11/25/22 01:42 Urine Urobilinogen Neg mg/dL (Negative) 11/25/22 01:42 Ur Leukocyte Esterase Negative (Negative) 11/25/22 01:42 Urine RBC 0-4 /hpf (0-2) H 11/25/22 01:42 Urine WBC None /hpf (0-5) 11/25/22 01:42 Ur Squamous Epith Cells None /hpf (0-5) 11/25/22 01:42 Amorphous Sediment Not Reportable 11/25/22 01:42 Urine Bacteria Trace /hpf (NONE) 11/25/22 01:42 Blood Type A Positive 11/24/22 18:24 Rho(D) Type Positive 11/24/22 18:24 Antibody Screen Negative 11/24/22 18:24 Crossmatch See Detail 11/24/22 18:24 Vitals Last Vital Signs Temp 98.3 F 11/26/22 03:24 Pulse 74 11/26/22 05:35 Resp 16 11/26/22 03:00 BP 93/61 11/26/22 03:00 Pulse Ox 95 11/26/22 03:00 O2 Del Method Room Air 11/26/22 03:24 Discharge Plan Discharge Patient Disposition: Home Condition: Stable Prescriptions: New Protonix 40 mg tablet,delayed release (DR/EC) 40 mg PO BID 21 Days Qty: 42 0RF FeroSul 325 mg (65 mg iron) tablet 325 mg PO EVERY OTHER DAY Qty: 30 0RF Senna-S 8.6-50 mg tablet 1 tab-cap PO DAILY Qty: 10 0RF Discharge Orders: Discharge Order (Routine); Ordered 11/26/22 Ordered By: Rupal Rubi Referrals: Abel Sal DO [Primary Care Provider] - 7-10 days Patient Instructions: Iron Supplements (By mouth), Laxative, Stimulant (By mouth) (Dulcolax, EX-Lax, Fleet Bisacodyl,..., Pantoprazole (By mouth) (Protonix), Gastrointestinal Bleeding (DC), GI Discharge Instructions, Opioid Safety Discharge Attestations Time Spent in Discharge Care*: greater than 30 min Quality Metrics Clinical Quality Measures [ No reported AMI, CVA or VTE this stay] Coding Level of Care Code Acute Code for Chg Fwd Diagnoses Acute upper GI bleed K92.2
--- NOTE | 2022-11-26 09:15 | PC.NURSE ---
Dr. Rubi came to bedside, plan to D/C home today
--- NOTE | 2022-11-26 10:23 | PC.NURSE ---
All D/C instructions educated to patient, transported home by
== END 2022-11-26 10:26 | disposition home or self-care (01) | DRG 379 ==
LOC: ER 19:45 → ICU 20:03
PROVIDERS: Surgery; Admitting Provider Family Medicine; Emergency Provider Emergency Medicine; PCP Family Medicine; Visit Provider Internal Medicine
PROC: 0DJ08ZZ Inspection of Upper Intestinal Tract, Via Natural or Artificial Opening Endoscopic (ICD-10-PCS; CPT 43235; principal; 2022-11-25 14:00)
DX: K25.4 Chronic or unspecified gastric ulcer with hemorrhage (principal); D64.9 Anemia, unspecified; M79.672 Pain in left foot; W18.30XA Fall on same level, unspecified, initial encounter; Y93.9 Activity, unspecified; Y92.012 Bathroom of single-family (private) house as the place of occurrence of the external cause; F17.200 Nicotine dependence, unspecified, uncomplicated; R55 Syncope and collapse; M92.70 Juvenile osteochondrosis of metatarsus, unspecified foot
CPT/HCPCS: 36415; 36430; 43239; 70450; 71045; 74177; 80053; 81001; 82533; 83605; 83735; 84100; 84443; 84484; 85014; 85018; 85025; 85610; 86850; 86900; 86920; 88305; 88342; 93005; 96365; 99291; C9113; J2704; J3010; J7030; P9016; Q9967

== ENCOUNTER → 2022-12-02 09:09 | Outpatient (BNVA) | payer MEDICARE, SELFPAY | PROVIDERS: PCP Family Medicine; Visit Provider Podiatrist Foot & Ankle Surgery | DX: M19.079 Primary osteoarthritis, unspecified ankle and foot; M84.375A Stress fracture, left foot, initial encounter for fracture | CPT/HCPCS: 99213 ==

== ENCOUNTER → 2022-12-03 12:20 | Outpatient (BNVA) | payer MEDICARE, SELFPAY | PROVIDERS: PCP Family Medicine; Visit Provider Nurse Practitioner Family | DX: K92.1 Melena (principal); C88.4 Extranodal marginal zone B-cell lymphoma of mucosa-associated lymphoid tissue [MALT-lymphoma]; Z09 Encounter for follow-up examination after completed treatment for conditions other than malignant neoplasm; K92.2 Gastrointestinal hemorrhage, unspecified; R53.83 Other fatigue | CPT/HCPCS: 80053; 82607; 84443; 85007; 85025; 86356; 86359; 86705; 86706; 86709; 86803; 87340 ==

== ENCOUNTER → 2022-12-20 16:01 | Outpatient (BNVA) | payer MEDICARE, SELFPAY | PROVIDERS: PCP Nurse Practitioner Family; Visit Provider Nurse Practitioner Family | DX: C88.4 Extranodal marginal zone B-cell lymphoma of mucosa-associated lymphoid tissue [MALT-lymphoma] (principal) | CPT/HCPCS: 85025 ==

== ENCOUNTER 2023-04-12 13:21 | Outpatient (CLI) | payer MEDICARE, SELFPAY ==
--- NOTE | 2023-04-12 14:30 | CT_ITS ---
WS: [id number] CT ABDOMEN AND PELVIS WITH CONTRAST HISTORY: R10.31 - Right lower quadrant pain TECHNIQUE: Imaging performed of the abdomen and pelvis with IV contrast. Single phase imaging of the abdomen. Coronal and sagittal reformats are submitted. All CT scans at [facility] use at [address] one of these dose optimization techniques: automated exposure control; mA and/or kV adjustment per patient size (includes targeted exams where dose is matched to clinical indication); or iterative re construction. IV CONTRAST: Omnipaque 350; 100 mL IV. Oral contrast: Yes. DLP: 319.61 mGy.cm COMPARISON: 11/24/2022 Lower thorax: Lung bases are clear. Heart is normal size. No hiatal hernia. Liver/biliary system: Normal size with no intrahepatic dilatation. Gallbladder: Mildly contracted. No adjacent inflammation. Pancreas: Normal size pancreas and pancreatic duct. No adjacent inflammation. Spleen: Normal size spleen. No mass or infarct. Adrenal glands: Normal. Right kidney: Normal. Left kidney: Normal. Aorta: Atherosclerosis aorta. Lymphadenopathy: None. Free fluid: None. GI tract: Well distended stomach with oral contrast. No small bowel obstruction. The appendix is been removed. No diverticulosis. Abdominal wall: Unremarkable abdominal wall. No hernia. Pelvis: Uterus is normal size and midline. Normal urinary bladder. No free fluid or adenopathy. Bones: Mild osteopenia. Sclerotic changes involving the superior LEFT femoral head. Favor early teixeria es of avascular necrosis. New finding since 11/24/2022. IMPRESSION: 1. No acute abnormality noted in the RIGHT lower quadrant or in the RIGHT inguinal region in the are a of pain. 2. No free fluid or adenopathy. 3. Prior appendectomy. 4. No GI tract obstruction. 5. Sclerosis involving the very superior LEFT femoral head. Suspect developing osteonecrosis.
[2023-04-12] MEDS: iohexol 350 mg/mL 500 mL Btl (per mL) PO (14:41)
[2023-04-12] MEDS: iohexol 350 mg/mL 500 mL Btl (per mL) IV (14:41)
== END 2023-04-12 13:22 | disposition home or self-care (01) ==
LOC: RAD 13:23
PROVIDERS: PCP Nurse Practitioner Family; Visit Provider Nurse Practitioner Family
DX: R10.31 Right lower quadrant pain (principal); M89.9 Disorder of bone, unspecified; Z90.89 Acquired absence of other organs
CPT/HCPCS: 74177; Q9967

== ENCOUNTER 2023-06-09 10:45 | Outpatient (CLI) | payer MEDICARE, SELFPAY ==
--- NOTE | 2023-06-09 11:00 | MR_ITS ---
WS: [id number] EXAMINATION: MR hip LT wo con* [id number] ORDER DATE: 06/09/2023 11:00 AM COMPARISON: None. HISTORY: M25.552 - Pain in left hip CONTRAST: CT 04/12/2023 TECHNIQUE: Coronal STIR of the Pelvis. Coronal proton density, coronal T1, axial T2 fat sat, axial T1 , sagittal T2 fat sat, and sagittal T1 performed of the hip. After contrast, axial T1 fat sat, coron al T1 fat sat, and sagittal T1 fat sat were performed. FINDINGS: Some images degraded by motion artifact. Serpiginous T2 signal abnormality in the LEFT femoral head corresponds to the finding on the recent C T. Findings compatible with avascular necrosis. No evidence of subchondral collapse. Trace effusion L EFT hip. Moderate degenerative narrowing bilateral hips. Small amount of cystic degenerative change i n the RIGHT femoral head. Normal femoral necks and visualized proximal femurs bilaterally. Normal LEFT acetabulum. Mild degenerative arthritis sacroiliac joints. Normal sigmoid colon. Small am ount of degenerative edema in the LEFT inferior sacrum. No other acute findings. IMPRESSION: Some images degraded by motion. 1. Serpiginous T2 signal normality in the LEFT femoral head compatible with avascular necrosis. No e vidence of subchondral collapse. 2. Moderate degenerative narrowing both hips. 3. Tiny amount of subchondral cystic change in the RIGHT femoral head. 4. No other acute findings.
== END 2023-06-09 10:46 | disposition home or self-care (01) ==
LOC: RAD 10:46
PROVIDERS: PCP Nurse Practitioner Family; Visit Provider Nurse Practitioner Family
DX: M87.852 Other osteonecrosis, left femur (principal)
CPT/HCPCS: 73721

== ENCOUNTER → 2023-08-24 09:25 | Outpatient (BNVA) | payer MEDICARE, SELFPAY | PROVIDERS: PCP Nurse Practitioner Family; Referring Provider Nurse Practitioner Family; Visit Provider Specialist | DX: M87.852 Other osteonecrosis, left femur | CPT/HCPCS: 73502; 99204 ==

== ENCOUNTER → 2025-02-07 08:42 | Outpatient (BNVA) | payer MEDICARE, SELFPAY | PROVIDERS: PCP Nurse Practitioner Family; Visit Provider Nurse Practitioner Family | DX: Z13.6 Encounter for screening for cardiovascular disorders (principal); K21.9 Gastro-esophageal reflux disease without esophagitis; D64.9 Anemia, unspecified | CPT/HCPCS: 80053; 80061; 84443; 85025 ==